=== PATIENT | male | born 1980 | race Caucasian/White ===

== ENCOUNTER 2018-06-27 08:15 | Emergency (ER) | payer OTHER, SELFPAY ==
[2018-06-27] VITALS (7 sets, daily range): BP systolic 102–122; BP diastolic 65–78; PULSE 58–73; RESP 12–18; TEMP 36.6; O2SAT 98–100
--- NOTE | 2018-06-27 08:31 | DI.RAD.S_ITS ---
PROCEDURE: XR CHEST 1V INDICATIONS: dizzy, weak, BP in 80s TECHNIQUE: One view of the chest was acquired. COMPARISON: None. FINDINGS: Surgical changes and devices: Monitoring leads are seen overlying the chest. Lungs and pleura: No pleural effusions or pneumothorax. Lungs are clear. Mediastinum: Mediastinal contours appear normal. Heart size is normal. Bones and chest wall: No suspicious bony lesions. Overlying soft tissues appear unremarkable. IMPRESSION: Portable chest within normal limits. Dictated by: Jose Manuel Andrade M.D. on 06/27/2018 at 8:13 Approved by: Jose Manuel Andrade M.D. on 06/27/2018 at 8:13
--- NOTE | 2018-06-27 08:48 | ED_ITS ---
HPI - Dizziness General Chief Complaint: Dizziness Stated Complaint: LOW BP, DIZZY Time Seen by Provider: 06/27/18 08:16 Source: patient and family Mode of arrival: ambulatory Limitations: no limitations History of Present Illness HPI Narrative: 38-year-old with history of AFib and recent ablation presents to the emergency department with episodes of near syncope, lightheadedness and low blood pressure today. He had his ablation at the end of May and had a complication with a Foreman catheter resulting in gross hematuria requiring a subsequent hospitalization. He has had follow-up with Urology and denies any ongoing blood in his urine. He has not felt well for about the past week and today felt his worst. He was evaluated by PA at work and noted to have a blood pressure in the 80s while sitting and 60s while standing. He denies any change in his medications, stating that his dose of metoprolol and flecainide is unchanged. Related Data Home Medications Medication Instructions Recorded Confirmed acetaminophen [Tylenol] 325 mg PO Q6H PRN 06/27/18 06/27/18 apixaban [Eliquis] 5 mg PO BID 06/27/18 06/27/18 flecainide 50 mg PO BID 06/27/18 06/27/18 metoprolol tartrate 25 mg PO BID 06/27/18 06/27/18 pantoprazole 40 mg PO DAILY 06/27/18 06/27/18 Allergies Allergy/AdvReac Type Severity Reaction Status Date / Time No Known Drug Allergies Allergy Verified 06/27/18 09:10 Review of Systems Review of Systems All systems reviewed & are unremarkable except as noted in HPI and below Constitutional Denies chills, Denies fever(s), Denies lethargy and Denies weakness Eyes Denies change in vision, Denies eye discharge, Denies irritation and Denies loss of vision ENT Ears, Nose, Mouth, and Throat: Denies change in voice, Denies neck pain and Denies sore throat Cardiovascular Denies chest pain, Denies irregular heart rhythm, Reports lightheadedness, Reports palpitations, Denies dyspnea, Denies dyspnea on exertion and Denies orthopnea Respiratory Denies cough, Denies dyspnea, Denies dyspnea on exertion and Denies wheezing Gastrointestinal Gastrointestinal: Denies abdominal pain, Denies change in bowel habits, Denies diarrhea, Denies nausea and Denies vomiting Genitourinary Denies hematuria, Denies flank pain, Denies urinary incontinence and Denies urinary urgency Musculoskeletal Denies neck pain Integumentary/Breasts Denies pruritus, Denies erythema, Denies rash and Denies wounds Neurologic Denies confusion, Denies loss of vision and Denies weakness Psychiatric Denies anxiety, Denies confusion, Denies depression, Denies homicidal ideation and Denies suicidal ideation Endocrine Reports palpitations Hematologic/Lymphatic Denies easy bruising Allergic/Immunologic Denies wheezing [facility] Medical History Atrial fibrillation (Acute) Atrial flutter (Acute) Surgical History History of cardiac radiofrequency ablation (Acute) Exam Initial Vital Signs Initial Vital Signs: Vital Signs Temperature 97.8 F 06/27/18 08:20 Pulse Rate 59 L 06/27/18 08:20 Respiratory Rate 13 06/27/18 08:20 Blood Pressure 107/78 06/27/18 08:20 Pulse Oximetry 100 06/27/18 08:20 Const General: cooperative and well developed Nutritional Appearance: well nourished Orientation: alert, awake, oriented x3 and not confused [facility] Head: normocephalic and atraumatic Ears: external ears normal and TM's normal bilaterally Nose: external nose normal and No nasal discharge Face and sinus: sinuses nontender, face symmetric, no sinus tenderness and No dry mucous membranes Mouth: oral mucosae normal and moist mucous membranes Teeth and gingiva: dentition normal Throat: tonsils normal and uvula midline Eyes General: appearance normal, both eyes and all related structures Eyelids: eyelids normal Conjunctivae: conjunctivae normal Sclera: sclerae normal Pupils: PERRL EOM: EOM intact bilaterally Neck Neck: normal visual inspection, trachea midline, No lymphadenopathy, No midline deformity and No JVD Lymphatic: No lymphedema Chest Chest: normal inspection of the chest Resp Effort & Inspection: normal respiratory effort, able to speak in complete sentences, no respiratory distress and no use of accessory muscles Auscultation: clear to auscultation bilaterally, no rales, no rhonchi and no wheezes Cardio Rate: regular rate Rhythm: abnormal rhythm Heart Sounds: no click, no gallops, no murmurs and no rubs Pulses: normal peripheral pulses GI Inspection: non-distended Palpation: soft, no hepatosplenomegaly, No guarding, No pulsatile mass and No tender Auscultation: normal bowel sounds Back/Spine/Pelvis Back: No CVA tenderness Cervical Spine: cervical ROM normal and No pain with cervical ROM Thoracic/Lumbar Spine: thoracic and lumbar spine normal to inspection Skin General: no rashes or lesions noted, No jaundice and No petechiae Neuro General: alert, oriented x3, gait normal and no focal motor deficits Speech: speech normal Extrem General: full ROM, no clubbing, cyanosis or edema, no pedal edema and no calf tenderness Psych Appearance: well kempt Mental Status: mental status grossly normal Attitude: cooperative Thought Content: normal and suicidality Judgment: judgment good Course Orders Ordered: ED Orders 06/27/18 10:18 CT angio chest PE protocol Stat 06/27/18 12:08 Urinalysis Sreen (Dip Only) Stat 06/27/18 12:34 Urine Culture Stat Urine Microscopic Stat Discontinued Medications Sodium Chloride (Normal Saline 0.9%) 1,000 mls @ 150 mls/hr IV CONT RANDALL Last Infusion: 06/27/18 12:51 Dose: 0 mls/hr Infusion: 06/27/18 09:54 Dose: 1,000 mls/hr Admin: 06/27/18 09:19 Dose: 150 mls/hr Consultations Consultation #1: I have had multiple lengthy conversations with the patient's advertising sales consultant regarding how to care for this patient. Dr. Arango recommends stat echocardiogram as well as a CT a of the chest to rule out any vascular abnormalities in the aftermath of the patient's ablation. Consultation #2: Dr. Arango has reviewed both the CT and echocardiogram and we sure the opinion that the patient can be safely discharged to follow up on Wednesday as previously planned. He has been given extensive bedside discharge instructions knees and he and parents have had all questions answered to their apparent satisfaction Vital Signs - 8 hr 06/27/18 11:18 06/27/18 11:51 Pulse Rate 65 72 Respiratory Rate 14 12 Blood Pressure [Left Arm] 122/78 H 112/77 Pulse Oximetry 99 MDM - Dizziness Differential Diagnosis Likely adverse reaction to drug, orthostatic hypotension, vertebral basilar insufficiency and other (anemia, arrhythmia, electrolyte abnormality, medication reaction, vs. other) Medical Records Attestation: I reviewed the patient's medical records. Lab Data Attestation: I reviewed the patient's lab results. Result diagrams: 06/27/18 08:40 06/27/18 08:40 Lab Results 06/27/18 06/27/18 06/27/18 Range/Units 08:40 08:40 08:40 WBC 4.6 (4.5-11.0) X10^3/uL RBC 3.76 L (4.5-5.9) X10^6/uL Hgb 11.3 L (13.5-17.5) g/dL Hct 32.5 L (41-53) % MCV 86.5 (80-100) fL MCH 30.1 (26-34) PG MCHC 34.8 (30-36) % RDW 14.0 (11.6-14.8) % Plt Count 377 (150-400) X10^3/uL Neut % (Auto) 55.4 (50-75) % Lymph % (Auto) 33.0 (25-40) % [place] % (Auto) 8.7 (3-14) % Eos % (Auto) 1.7 L (2-4) % Baso % (Auto) 1.2 (0-2) % Neut # (Auto) 2500 L (3578-5184) /uL Sodium 139 (137-145) mmol/L Potassium 4.7 (3.4-5.1) mmol/L Chloride 101 (98-107) mmol/L Carbon Dioxide 27 (22-32) mmol/L BUN 17 (9-20) mg/dL Creatinine 1.20 (0.66-1.25) mg/dL Estimated GFR > 60.0 (>60) mL/min BUN/Creatinine Ratio 14.2 (6-22) Glucose 80 (70-100) mg/dL Calcium 9.6 (8.4-10.2) mg/dL Troponin I < 0.012 (0.01-0.034) ng/mL Urine Color Urine Appearance Urine pH (4.5-8.0) Ur Specific [place] (1.000-1.035) Urine Protein (Negative) Urine Glucose (UA) (Normal) g/dL Urine Ketones (NEGATIVE) Urine Occult Blood (Negative) Urine Nitrate (Negative) Urine Bilirubin (NEGATIVE) Urine Urobilinogen (0.2) E.U./dL Ur Leukocyte Esterase (NEGATIVE) Urine RBC (0-5/HPF) Urine WBC (0-5/HPF) Urine Bacteria (None) Ur Culture Indicated? Micro UA Comment Blood Type A Positive Antibody Screen Negative 06/27/18 06/27/18 Range/Units 12:08 12:34 WBC (4.5-11.0) X10^3/uL RBC (4.5-5.9) X10^6/uL Hgb (13.5-17.5) g/dL Hct (41-53) % MCV (80-100) fL MCH (26-34) PG MCHC (30-36) % RDW (11.6-14.8) % Plt Count (150-400) X10^3/uL Neut % (Auto) (50-75) % Lymph % (Auto) (25-40) % [place] % (Auto) (3-14) % Eos % (Auto) (2-4) % Baso % (Auto) (0-2) % Neut # (Auto) (6022-0669) /uL Sodium (137-145) mmol/L Potassium (3.4-5.1) mmol/L Chloride (98-107) mmol/L Carbon Dioxide (22-32) mmol/L BUN (9-20) mg/dL Creatinine (0.66-1.25) mg/dL Estimated GFR (>60) mL/min BUN/Creatinine Ratio (6-22) Glucose (70-100) mg/dL Calcium (8.4-10.2) mg/dL Troponin I (0.01-0.034) ng/mL Urine Color Yellow Urine Appearance Clear Urine pH 7.0 (4.5-8.0) Ur Specific [place] 1.010 (1.000-1.035) Urine Protein Negative (Negative) Urine Glucose (UA) Negative (Normal) g/dL Urine Ketones Negative (NEGATIVE) Urine Occult Blood Trace-intact (Negative) Urine Nitrate Negative (Negative) Urine Bilirubin Negative (NEGATIVE) Urine Urobilinogen 0.2 (0.2) E.U./dL Ur Leukocyte Esterase Negative (NEGATIVE) Urine RBC None seen (0-5/HPF) Urine WBC 5-10/hpf H (0-5/HPF) Urine Bacteria None seen (None) Ur Culture Indicated? Specimen cultured Micro UA Comment Not Reportable Blood Type Antibody Screen Imaging Data CT scan - chest: Radiologist's impression: PROCEDURE: CT ANGIO CHEST PE PROTOCOL INDICATIONS: near syncope, BP in 60-80s, recent ablation TECHNIQUE: After the administration of intravenous contrast, 2 mm thick sections acquired from the pulmonary apices to the posterior costophrenic angles. 3-dimensional maximum intensity projection (MIP) coronal and sagittal reformats were then acquired through the thorax. For radiation dose reduction, the following was used: automated exposure control, adjustment of mA and/or kV according to patient size. COMPARISON: None. FINDINGS: Image quality: Excellent. Pulmonary arteries: Pulmonary arteries are normal in size, and demonstrate no intraluminal filling defects to suggest central pulmonary embolism. Lungs and pleura: There is mild dependent atelectasis. No focal consolidation to No pleural effusions or pneumothorax. Central and peripheral airways are patent. Mediastinum: No mediastinal fluid collections. Heart size is normal, without pericardial effusion. No mediastinal or hilar adenopathy. Thoracic aorta is normal in caliber and enhancement. Esophagus is normal in caliber, without hiatal hernia. Bones and chest wall: No suspicious bony lesions. Ribs and thoracic spine appear intact throughout. The visualized thyroid demonstrates no discrete nodules. No axillary or supraclavicular adenopathy. Abdomen: Visualized upper abdominal solid organs appear normal in the early arterial phase of enhancement. IMPRESSION: 1. No evidence of pulmonary embolism. 2. No mediastinal fluid collections. Dictated by: Isak Gage M.D. on 06/27/2018 at 10:17 Approved by: Isak Gage M.D. on 06/27/2018 at 10:21 ECG Data Attestation: I personally reviewed and interpreted this ECG as follows: Prior ECG tracings: not available for review Interpretation: Atrial flutter in the 60s. No signs of ischemia such as ST segmental elevation or depression, nor T-wave inversions Critical Care Time Critical Care Time: Yes Total Critical Care Time: 30 Attestation: The high probability of a clinically significant, sudden or life threatening deterioration of the [cardiovascular] system(s) required my full and direct attention, intervention and personal management. The aggregate critical care time was [30] minutes. This time is in addition to time spent performing reported procedures but includes the following: [x] Data Review and interpretation [x] Patient assessment and monitoring of vital signs [x] Documentation [x] Medication orders and management Discharge Plan Departure Patient Disposition: Home, Self-Care Clinical Impression: Near syncope Discharge Date/Time: 06/27/18 12:45 Interventions: ED Discharge Assessment Last Done: 06/27/18 12:44 Instructions: DI for Hypotension Activity Restrictions/Additional Instructions: *You have been diagnosed with [hypotension resolved, near syncope ] *What to do: *Continue to take medications as directed *Follow up with your advertising sales consultant as planne *Return to ER if you should have any new, worsening or concerning symptoms Prescriptions: No Action pantoprazole 40 mg tablet,delayed release (DR/EC) 40 mg PO DAILY RF: 0 flecainide 50 mg tablet 50 mg PO BID RF: 0 metoprolol tartrate 25 mg tablet 25 mg PO BID RF: 0 acetaminophen [Tylenol] 325 mg Capsule 325 mg PO Q6H PRN (Reason: Pain (Scale Score 4-6)) RF: 0 apixaban [Eliquis] 5 mg tablet 5 mg PO BID RF: 0 Referrals: Brijesh Arango MD [Physician] -
[2018-06-27 09:06] LABS: Add Manual Diff / Slide Review NO; Basophils Percent Auto 1.2 % (0-2); Eosinophils Percent Auto 1.7 % (2-4); Hematocrit 32.5 % (41-53); Hemoglobin 11.3 g/dL (13.5-17.5); Mean Corpuscular HGB Conc 34.8 % (30-36); Mean Corpuscular Hemoglobin 30.1 PG (26-34); Mean Corpuscular Volume 86.5 fL (80-100); Monocytes Percent Auto 8.7 % (3-14); Neutrophils Absolute Auto 2500 /uL (3000-5900); Neutrophils Percent Auto 55.4 % (50-75); Platelet Count 377 X10^3/uL (150-400); Red Blood Cell Count 3.76 X10^6/uL (4.5-5.9); White Blood Cell Count 4.6 X10^3/uL (4.5-11.0)
[2018-06-27 09:19] LABS: BUN Creatinine Ratio 14.2 (6-22); Blood Urea Nitrogen 17 mg/dL (9-20); Calcium 9.6 mg/dL (8.4-10.2); Carbon Dioxide 27 mmol/L (22-32); Chloride 101 mmol/L (98-107); Estimated Glomerular Filt Rate > 60.0 mL/min (>60); Glucose 80 mg/dL (70-100); Potassium 4.7 mmol/L (3.4-5.1); Sodium 139 mmol/L (137-145)
[2018-06-27] MEDS: SODIUM CHLORIDE 0.9% 1,000 ML 150 ML IV (09:19)
[2018-06-27 09:20] LABS: HEMOLYSIS 70 (0-50)
[2018-06-27 09:30] LABS: Troponin I < 0.012 ng/mL (0.01-0.034)
--- NOTE | 2018-06-27 10:09 | DI.ECHO.S_ITS ---
[place] [facility]---------+ [facility] +---------+ : : [address] [place] : : : : [phone] : : : : Phone: [phone]+ Echocardiogram Report + + :Name: AGUILA HALL Study Date: 06/27/2018 Height: 75 in : :[facility] Weight: 220 lb : : Gender: Male BSA: 2.3 m2 : :: 1980 Age: 38 yrs BP: 112/77 mmHg: :Reason For Study: Atrial fibrillation : :Ordering Physician: Brijesh Ceballos : :[place] Performed By: Carlee Irvin : :Referring: THOMAS HAMMER : + + Interpretation Summary 1) Normal left ventricular thickness, size, wall motion, and systolic function (EF 60-65%). 2) Mildly enlarged right ventricle with mildly reduced function. 3) No significant valvular abnormalities. 4) The right ventricular systolic pressure is estimated at 22 mmHg assuming a right atrial pressure of 3 mm Hg. 5) Compared to the Echo done 06/09/2018, RV is mildly enlarged with mildly reduced function on this study but RV was not well imaged on the prior echo. Compared to the Echo done 12/21/2017, RV looks about the same grossly. Procedure: A two-dimensional transthoracic echocardiogram with color flow and Doppler was performed. The study quality was technically adequate. Comparison is made with the echocardiogram of 06-09-18. The patient was in atrial fibrillation with heart rates between 71-83 bpm during the exam. Left Ventricle: The left ventricle is normal in size, wall thickness, and systolic function without any focal wall motion abnormalities. The ejection fraction is estimated to be 60-65%. Right Ventricle: The right ventricle is mildly dilated. Right ventricular systolic function is mildly reduced. Atria: The left atrium grossly appears normal in size. Right atrial size is normal. The interatrial septum is intact with no evidence for an atrial septal defect. Mitral Valve: The mitral valve is normal in structure and function. There is no mitral regurgitation noted. Aortic Valve: The aortic valve is trileaflet. The aortic valve opens well. No aortic regurgitation is present. Tricuspid Valve: The tricuspid valve leaflets are thin and pliable. There is trace tricuspid regurgitation. The right ventricular systolic pressure is estimated at 22 mmHg assuming a right atrial pressure of 3 mm Hg. Pulmonic Valve: The pulmonic valve is normal in structure and function. There is trace pulmonic regurgitation. Great Vessels: The aortic root is mildly dilated. The ascending aorta is normal in size. The aortic arch is normal in size. The IVC is of normal diameter and collapses greater than 50% with a sniff. This suggests a low right atrial pressure of 3 mm Hg. Pericardium/ Pleura There is no pericardial effusion. There is no pleural effusion. MMode/2D Measurements & Calculations LVIDd: 5.3 cm Ao root diam: 4.1 cm LVIDs: 3.5 cm Aortic Jxn: 3.1 cm FS: 33.4 % asc Aorta Diam: 3.3 cm IVSd: 0.91 cm Ao Arch Diam (Prox Trans): 2.7 cm LVPWd: 0.69 cm LV saldivar. diameter/BSA (cm/m^2): 2.3 LV sys. diameter/BSA (cm/m^2): 1.5 LA dimension: 3.7 cm RA long axis: 5.0 cm LA A4 area: 23.6 cm2 RA area: 18.6 cm2 LA length (vol): 5.2 cm RA vol: 59.2 ml RA : 25.9 ml/m2 IVC diam: 1.4 cm RVDd major: 5.3 cm RVD1 (basal): 4.1 cm RVD2 (mid): 3.8 cm Doppler Measurements & Calculations Ao V2 max: 87.6 cm/sec TR max salena: 216.0 cm/sec Ao V2 mean: 60.1 cm/sec TR max P.7 mmHg Ao max P.1 mmHg PA V2 max: 59.6 cm/sec Ao mean P.6 mmHg PA V2 mean: 42.9 cm/sec Ao V2 VTI: 18.0 cm PA mean P.82 mmHg PA Accel Time: 0.13 sec Reading Physician:01:06 PM
--- NOTE | 2018-06-27 10:18 | DI.CT.S_ITS ---
PROCEDURE: CT ANGIO CHEST PE PROTOCOL INDICATIONS: near syncope, BP in 60-80s, recent ablation TECHNIQUE: After the administration of intravenous contrast, 2 mm thick sections acquired from the pulmonary apices to the posterior costophrenic angles. 3-dimensional maximum intensity projection (MIP) coronal and sagittal reformats were then acquired through the thorax. For radiation dose reduction, the following was used: automated exposure control, adjustment of mA and/or kV according to patient size. COMPARISON: None. FINDINGS: Image quality: Excellent. Pulmonary arteries: Pulmonary arteries are normal in size, and demonstrate no intraluminal filling defects to suggest central pulmonary embolism. Lungs and pleura: There is mild dependent atelectasis. No focal consolidation to No pleural effusions or pneumothorax. Central and peripheral airways are patent. Mediastinum: No mediastinal fluid collections. Heart size is normal, without pericardial effusion. No mediastinal or hilar adenopathy. Thoracic aorta is normal in caliber and enhancement. Esophagus is normal in caliber, without hiatal hernia. Bones and chest wall: No suspicious bony lesions. Ribs and thoracic spine appear intact throughout. The visualized thyroid demonstrates no discrete nodules. No axillary or supraclavicular adenopathy. Abdomen: Visualized upper abdominal solid organs appear normal in the early arterial phase of enhancement. IMPRESSION: 1. No evidence of pulmonary embolism. 2. No mediastinal fluid collections. Dictated by: Isak Gage M.D. on 06/27/2018 at 10:17 Approved by: Isak Gage M.D. on 06/27/2018 at 10:21
[2018-06-27 12:10] LABS: Appearance Urine UA CLEAR; Bilirubin Urine UA NEGATIVE (NEGATIVE); Color Urine UA YELLOW; Glucose Urine UA NEGATIVE (Normal); Ketones Urine UA NEGATIVE (NEGATIVE); Leukocyte Esterase Urine UA NEGATIVE (NEGATIVE); Nitrite Urine UA Negative (Negative); Occult Blood Urine UA TRACE-INTACT (Negative); Protein Urine UA NEGATIVE (Negative); Urobilinogen Urine UA 0.2 E.U./dL (0.2)
[2018-06-27 13:57] LABS: Bacteria Urine None Seen; RBC Urine None Seen (0-5/HPF)
[2018-06-27 14:12] LABS: Culture Indicated Urine Specimen Cultured; WBC Urine 5-10/HPF (0-5/HPF)
== END 2018-06-27 12:45 | disposition home or self-care (01) ==
PROVIDERS: Emergency Provider Emergency Medicine
DX: R55 Syncope and collapse (principal)
CPT/HCPCS: 36591; 71045; 71275; 80048; 81003; 81015; 84484; 85025; 86850; 86900; 86901; 87086; 93005; 93010; 93306; 96360; 96361; 99283; 99285; Q9967

== ENCOUNTER 2019-01-17 11:45 | Emergency (ER) | payer OTHER, SELFPAY ==
[2019-01-17 11:50] VITALS: BP 156/87; PULSE 74; RESP 16; TEMP 36.1; O2SAT 99; BMI 28.1
--- NOTE | 2019-01-17 11:57 | DI.RAD.S_ITS ---
PROCEDURE: XR CHEST 1V INDICATIONS: cp TECHNIQUE: One view of the chest was acquired. COMPARISON: [facility], CR, XR CHEST 1V, 06/27/2018, 8:41. FINDINGS: Surgical changes and devices: None. Lungs and pleura: Lungs are clear. No pleural effusions or pneumothorax. Mediastinum: Mediastinal contours appear normal. Heart size is normal. Bones and chest wall: No suspicious bony lesions. Overlying soft tissues appear unremarkable. IMPRESSION: Negative chest. No acute cardiopulmonary process is evident. Dictated by: Manuel Daniel M.D. on 01/17/2019 at 11:26 Approved by: Manuel Daniel M.D. on 01/17/2019 at 11:27
--- NOTE | 2019-01-17 12:04 | ED.ARRPALP ---
HPI - Arrhythmia/Palpitations <ANGELA Molina - Last Filed: 01/17/19 22:06> General Chief Complaint: Arrhythmia/Palpitations Stated Complaint: 'Feel weird' hx of afib Time Seen by Provider: 01/17/19 12:04 Source: patient Mode of arrival: ambulatory Limitations: no limitations History of Present Illness HPI narrative: 38-year-old male with history of AFib who is a nonsmoker here for complaint of having complaint of chest tenseness over the past couple of weeks to the last couple of months. He recently had an ablation for his AF fib in October. He is currently followed by cardiology Dr. Cantrell at . he denies any chest pain. No shortness of breath. He does state that he has been feeling anxious over this same time frame. He does report that he has been seen by his primary care provider and was concerned about put him on a anti anxiety meds as they did not want complications with his heart issues. He denies any nausea vomiting. He denies any stressors or relievers of his symptoms. He denies any extra stressed. He is ambulatory into the emergency room. He denies any other concerns or complaints at this timeframe. Related Data Home Medications Medication Instructions Recorded Confirmed acetaminophen [Tylenol] 325 mg PO Q6H PRN 06/27/18 01/17/19 apixaban [Eliquis] 5 mg PO BID 06/27/18 01/17/19 metoprolol tartrate 25 mg PO BID 06/27/18 01/17/19 Nyquil 1 dose PO BEDTIME PRN 01/17/19 01/17/19 amiodarone 1 dose PO BID 01/17/19 01/17/19 multivitamin 1 tab PO DAILY 01/17/19 01/17/19 Allergies Allergy/AdvReac Type Severity Reaction Status Date / Time No Known Drug Allergies Allergy Verified 01/17/19 11:50 Review of Systems <ANGELA Molina - Last Filed: 01/17/19 22:06> Constitutional Denies chills, Denies fatigue, Denies fever(s), Denies lethargy and Denies weakness Eyes Denies change in vision, Denies eye discharge, Denies irritation and Denies loss of vision ENT Ears, Nose, Mouth, and Throat: Denies change in voice, Denies neck pain and Denies sore throat Cardiovascular Denies dyspnea and Denies dyspnea on exertion Comments: Chest tenseness Respiratory Denies cough, Denies dyspnea, Denies dyspnea on exertion and Denies wheezing Gastrointestinal Gastrointestinal: Denies abdominal pain, Denies change in bowel habits, Denies diarrhea, Denies nausea and Denies vomiting Musculoskeletal Denies neck pain Integumentary/Breasts Denies pruritus, Denies erythema, Denies rash and Denies wounds Neurologic Denies confusion, Denies loss of vision and Denies weakness Psychiatric Denies anxiety, Denies confusion, Denies depression, Denies homicidal ideation and Denies suicidal ideation Endocrine Denies fatigue and Denies flushing Hematologic/Lymphatic Denies easy bruising Allergic/Immunologic Denies wheezing PFSH <ANGELA Molina - Last Filed: 01/17/19 22:06> Medical History Atrial fibrillation (Acute) Atrial flutter (Acute) Surgical History History of cardiac radiofrequency ablation (Acute) Social History Smoking Status: Never smoker Social History Smoking Status: Never smoker Exam <ANGELA Molina - Last Filed: 01/17/19 22:06> Initial Vital Signs Initial Vital Signs: Vital Signs Temperature 97.0 F L 01/17/19 11:50 Pulse Rate 74 01/17/19 11:50 Respiratory Rate 16 01/17/19 11:50 Blood Pressure 156/87 H 01/17/19 11:50 Pulse Oximetry 99 01/17/19 11:50 Const General: cooperative and well developed Nutritional Appearance: well nourished Orientation: alert, awake, oriented x3 and not confused HENMT Mouth: oral mucosae normal and moist mucous membranes Eyes Conjunctivae: conjunctivae normal Sclera: sclerae normal Pupils: PERRL EOM: EOM intact bilaterally Resp Effort & Inspection: normal respiratory effort, able to speak in complete sentences, no respiratory distress and no use of accessory muscles Auscultation: clear to auscultation bilaterally, no rales, no rhonchi and no wheezes Cardio Rate: regular rate Rhythm: regular rhythm Heart Sounds: no click, no gallops, no murmurs and no rubs Pulses: normal peripheral pulses Skin General: no rashes or lesions noted, No jaundice and No petechiae Neuro General: alert, oriented x3, gait normal and no focal motor deficits Speech: speech normal <Neo Quintana DO - Last Filed: 01/18/19 07:14> Initial Vital Signs Initial Vital Signs: Vital Signs Temperature 97.0 F L 01/17/19 11:50 Pulse Rate 74 01/17/19 11:50 Respiratory Rate 16 01/17/19 11:50 Blood Pressure 156/87 H 01/17/19 11:50 Pulse Oximetry 99 01/17/19 11:50 Course <ANGELA Molina - Last Filed: 01/17/19 22:06> Orders Ordered: ED Orders 01/17/19 11:57 XR chest 1V Stat 01/17/19 12:20 Basic Metabolic Panel Stat Complete Blood Count AUTO DIFF Stat Magnesium Stat Partial Thromboplastin Time Stat Prothrombin Time INR Stat Thyroid Stimulating Hormone Stat Troponin & CK Cardiac Panel Stat Vital Signs - 8 hr 01/17/19 14:30 Pulse Rate 62 Respiratory Rate 14 Blood Pressure [Right Arm] 129/94 H Pulse Oximetry 100 <DO Steff Ybarra Last Filed: 01/18/19 07:14> Orders Ordered: ED Orders 01/17/19 11:57 XR chest 1V Stat 01/17/19 12:20 Basic Metabolic Panel Stat Complete Blood Count AUTO DIFF Stat Magnesium Stat Partial Thromboplastin Time Stat Prothrombin Time INR Stat Thyroid Stimulating Hormone Stat Troponin & CK Cardiac Panel Stat Vital Signs - 8 hr 01/17/19 14:30 Pulse Rate 62 Respiratory Rate 14 Blood Pressure [Right Arm] 129/94 H Pulse Oximetry 100 MDM - Arrhythmia/Palpitations <ANGELA Molina - Last Filed: 01/17/19 22:06> Lab Data Result diagrams: 01/17/19 12:20 01/17/19 12:20 Lab Results 01/17/19 01/17/19 01/17/19 Range/Units 12:20 12:20 12:20 WBC 5.8 (4.5-11.0) X10^3/uL RBC 4.93 (4.5-5.9) X10^6/uL Hgb 14.8 (13.5-17.5) g/dL Hct 43.0 (41-53) % MCV 87.1 (80-100) fL MCH 29.9 (26-34) PG MCHC 34.4 (30-36) % RDW 13.6 (11.6-14.8) % Plt Count 260 (150-400) X10^3/uL Neut % (Auto) 65.5 (50-75) % Lymph % (Auto) 25.8 (25-40) % Brewster % (Auto) 7.0 (3-14) % Eos % (Auto) 0.8 L (2-4) % Baso % (Auto) 0.9 (0-2) % Neut # (Auto) 3800 (7966-1812) /uL Lymph # (Auto) 1500 (2307-6130) /uL Brewster # (Auto) 400 (0-900) /uL Eos # (Auto) 0 (0-450) /uL Baso # (Auto) 100 (0-100) /uL PT 13.8 H (10.1-12.7) SECONDS INR 1.2 (0.9-1.3) APTT 30 (26.4-36.2) SECONDS Sodium 137 (137-145) mmol/L Potassium 4.1 (3.4-5.1) mmol/L Chloride 99 (98-107) mmol/L Carbon Dioxide 28 (22-32) mmol/L BUN 22 H (9-20) mg/dL Creatinine 1.20 (0.66-1.25) mg/dL Estimated GFR > 60.0 (>60) mL/min BUN/Creatinine Ratio 18.3 (6-22) Glucose 93 (70-100) mg/dL Calcium 9.6 (8.4-10.2) mg/dL Magnesium 2.1 (1.6-2.3) mg/dL Total Creatine Kinase 718 H (55-170) U/L CK-MB (CK-2) 5.25 H (<2.37) ng/mL CK-MB (CK-2) Rel Index 0.7 L (1.5-5.0) % Troponin I < 0.012 (0.01-0.034) ng/mL TSH (0.47-4.68) uIU/mL 01/17/19 Range/Units 12:20 WBC (4.5-11.0) X10^3/uL RBC (4.5-5.9) X10^6/uL Hgb (13.5-17.5) g/dL Hct (41-53) % MCV (80-100) fL MCH (26-34) PG MCHC (30-36) % RDW (11.6-14.8) % Plt Count (150-400) X10^3/uL Neut % (Auto) (50-75) % Lymph % (Auto) (25-40) % Brewster % (Auto) (3-14) % Eos % (Auto) (2-4) % Baso % (Auto) (0-2) % Neut # (Auto) (9651-0186) /uL Lymph # (Auto) (8554-9511) /uL Brewster # (Auto) (0-900) /uL Eos # (Auto) (0-450) /uL Baso # (Auto) (0-100) /uL PT (10.1-12.7) SECONDS INR (0.9-1.3) APTT (26.4-36.2) SECONDS Sodium (137-145) mmol/L Potassium (3.4-5.1) mmol/L Chloride (98-107) mmol/L Carbon Dioxide (22-32) mmol/L BUN (9-20) mg/dL Creatinine (0.66-1.25) mg/dL Estimated GFR (>60) mL/min BUN/Creatinine Ratio (6-22) Glucose (70-100) mg/dL Calcium (8.4-10.2) mg/dL Magnesium (1.6-2.3) mg/dL Total Creatine Kinase (55-170) U/L CK-MB (CK-2) (<2.37) ng/mL CK-MB (CK-2) Rel Index (1.5-5.0) % Troponin I (0.01-0.034) ng/mL TSH 2.72 (0.47-4.68) uIU/mL Imaging Data Chest x-ray: Radiologist's impression: [address] [address] XRay Report Signed Patient: IsabelMike [facility]#: [id number] : 1980Acct:[id number] Age/Sex: 38 / MDate of Service: 01/17/19 Loc: ED Accession Number: [id number] Procedure: XR chest 1V Ordering Provider: Neo Quintana D.O. PROCEDURE: XR CHEST 1V INDICATIONS: cp TECHNIQUE: One view of the chest was acquired. COMPARISON: [facility], , XR CHEST 1V, 06/27/2018, 8:41. FINDINGS: Surgical changes and devices: None. Lungs and pleura: Lungs are clear. No pleural effusions or pneumothorax. Mediastinum: Mediastinal contours appear normal. Heart size is normal. Bones and chest wall: No suspicious bony lesions. Overlying soft tissues appear unremarkable. IMPRESSION: Negative chest. No acute cardiopulmonary process is evident. Dictated by: Manuel Daniel M.D. on 01/17/2019 at 11:26 Approved by: Manuel Daniel M.D. on 01/17/2019 at 11:27 ECG Data Interpretation: EKG shows normal sinus rhythm with no ST elevation or depression. No ectopy. Ventricular rate is 70. Pr interval of 172. QRS duration of 100. QTC of 444. MDM Narrative Medical decision making narrative: EKG shows sinus rhythm no ST elevation or depression. No ectopy. Chest x-ray was obtained was negative. Cbc Was unremarkable. CMP was obtained was also unremarkable. CK was elevated at 718 CK-MB was also elevated at 5.25 however CK-MB relative index was low at 0.7. Troponin was negative. Believe that his chest tense feeling may be related to anxiety. Discussed case with Dr. Cantrell cardiology at who states that she knows patient it as being an anxious individual. She has no contraindications for him to going normal anti anxiety medications. She will follow up with him in her office next week as scheduled. She states that no further actions are needed at this time. He is encouraged to follow up with his primary care provider for discussion of antianxiety medications. For now he is encouraged to use relaxation techniques such as deep breathing exercises to help with any symptoms. For any worsening symptoms return to the emergency room. <Neo Quintana DO - Last Filed: 01/18/19 07:14> Lab Data Lab Results 03/05/19 03/05/19 03/05/19 Range/Units 12:20 12:20 12:20 WBC 5.8 (4.5-11.0) X10^3/uL RBC 4.93 (4.5-5.9) X10^6/uL Hgb 14.8 (13.5-17.5) g/dL Hct 43.0 (41-53) % MCV 87.1 (80-100) fL MCH 29.9 (26-34) PG MCHC 34.4 (30-36) % RDW 13.6 (11.6-14.8) % Plt Count 260 (150-400) X10^3/uL Neut % (Auto) 65.5 (50-75) % Lymph % (Auto) 25.8 (25-40) % Brewster % (Auto) 7.0 (3-14) % Eos % (Auto) 0.8 L (2-4) % Baso % (Auto) 0.9 (0-2) % Neut # (Auto) 3800 (9146-4521) /uL Lymph # (Auto) 1500 (4908-7234) /uL Brewster # (Auto) 400 (0-900) /uL Eos # (Auto) 0 (0-450) /uL Baso # (Auto) 100 (0-100) /uL PT 13.8 H (10.1-12.7) SECONDS INR 1.2 (0.9-1.3) APTT 30 (26.4-36.2) SECONDS Sodium 137 (137-145) mmol/L Potassium 4.1 (3.4-5.1) mmol/L Chloride 99 (98-107) mmol/L Carbon Dioxide 28 (22-32) mmol/L BUN 22 H (9-20) mg/dL Creatinine 1.20 (0.66-1.25) mg/dL Estimated GFR > 60.0 (>60) mL/min BUN/Creatinine Ratio 18.3 (6-22) Glucose 93 (70-100) mg/dL Calcium 9.6 (8.4-10.2) mg/dL Magnesium 2.1 (1.6-2.3) mg/dL Total Creatine Kinase 718 H (55-170) U/L CK-MB (CK-2) 5.25 H (<2.37) ng/mL CK-MB (CK-2) Rel Index 0.7 L (1.5-5.0) % Troponin I < 0.012 (0.01-0.034) ng/mL TSH (0.47-4.68) uIU/mL 01/17/19 Range/Units 12:20 WBC (4.5-11.0) X10^3/uL RBC (4.5-5.9) X10^6/uL Hgb (13.5-17.5) g/dL Hct (41-53) % MCV (80-100) fL MCH (26-34) PG MCHC (30-36) % RDW (11.6-14.8) % Plt Count (150-400) X10^3/uL Neut % (Auto) (50-75) % Lymph % (Auto) (25-40) % Brewster % (Auto) (3-14) % Eos % (Auto) (2-4) % Baso % (Auto) (0-2) % Neut # (Auto) (4644-1718) /uL Lymph # (Auto) (5414-8392) /uL Brewster # (Auto) (0-900) /uL Eos # (Auto) (0-450) /uL Baso # (Auto) (0-100) /uL PT (10.1-12.7) SECONDS INR (0.9-1.3) APTT (26.4-36.2) SECONDS Sodium (137-145) mmol/L Potassium (3.4-5.1) mmol/L Chloride (98-107) mmol/L Carbon Dioxide (22-32) mmol/L BUN (9-20) mg/dL Creatinine (0.66-1.25) mg/dL Estimated GFR (>60) mL/min BUN/Creatinine Ratio (6-22) Glucose (70-100) mg/dL Calcium (8.4-10.2) mg/dL Magnesium (1.6-2.3) mg/dL Total Creatine Kinase (55-170) U/L CK-MB (CK-2) (<2.37) ng/mL CK-MB (CK-2) Rel Index (1.5-5.0) % Troponin I (0.01-0.034) ng/mL TSH 2.72 (0.47-4.68) uIU/mL Discharge Plan Departure Patient Disposition: Home Clinical Impression: Chest tightness Discharge Date/Time: 01/17/19 15:06 Interventions: ED Discharge Assessment Last Done: 01/17/19 15:06 Instructions: DI for Anxiety -- Adult Activity Restrictions/Additional Instructions: laboratory results and imaging along with EKG today were unremarkable. Follow up with Cardiology next week as scheduled. I suspect that her symptoms may have a anxiety component to it recommend following up with her primary care provider for discussion of anti anxiety medications. In the short term recommend relaxation techniques such as deep breathing exercises to help with any symptoms. Take medications as prescribed. For any worsening symptoms return to the emergency room. Prescriptions: No Action multivitamin Tablet 1 tab PO DAILY RF: 0 amiodarone 200 mg tablet 1 dose PO BID RF: 0 Nyquil 1 dose PO BEDTIME PRN (Reason: cough and cold symptoms) RF: 0 metoprolol tartrate 25 mg tablet 25 mg PO BID RF: 0 acetaminophen [Tylenol] 325 mg Capsule 325 mg PO Q6H PRN (Reason: Pain (Scale Score 4-6)) RF: 0 Eliquis 5 mg tablet 5 mg PO BID RF: 0 Referrals: [facility] [Provider Group] <Neo Quintana DO - Last Filed: 01/18/19 07:14> Coscharla ED Attending Elvis Attestation: I was available for consultation during this patient's emergency department encounter
[2019-01-17 12:21] VITALS: BP 141/96; PULSE 67; RESP 15; O2SAT 95
[2019-01-17 12:29] LABS: Add Manual Diff / Slide Review NO; Basophils Absolute Auto 100 /uL (0-100); Basophils Percent Auto 0.9 % (0-2); Eosinophils Absolute Auto 0 /uL (0-450); Eosinophils Percent Auto 0.8 % (2-4); Hemoglobin 14.8 g/dL (13.5-17.5); Lymphocytes Absolute Auto 1500 /uL (1100-4500); Lymphocytes Percent Auto 25.8 % (25-40); Mean Corpuscular HGB Conc 34.4 % (30-36); Mean Corpuscular Hemoglobin 29.9 PG (26-34); Mean Corpuscular Volume 87.1 fL (80-100); Monocytes Absolute Auto 400 /uL (0-900); Neutrophils Absolute Auto 3800 /uL (1500-7000); Neutrophils Percent Auto 65.5 % (50-75); Platelet Count 260 X10^3/uL (150-400); Red Blood Cell Count 4.93 X10^6/uL (4.5-5.9); Red Cell Distribution Width 13.6 % (11.6-14.8); White Blood Cell Count 5.8 X10^3/uL (4.5-11.0)
[2019-01-17 12:38] LABS: INR 1.2 (0.9-1.3); Prothrombin Time 13.8 SECONDS (10.1-12.7)
[2019-01-17 12:41] LABS: PTT Partial Thromboplastin Tim 30 SECONDS (26.4-36.2)
[2019-01-17 12:44] LABS: BUN Creatinine Ratio 18.3 (6-22); Blood Urea Nitrogen 22 mg/dL (9-20); Calcium 9.6 mg/dL (8.4-10.2); Carbon Dioxide 28 mmol/L (22-32); Chloride 99 mmol/L (98-107); Creatine Kinase 718 U/L (55-170); Estimated Glomerular Filt Rate > 60.0 mL/min (>60); Glucose 93 mg/dL (70-100); HEMOLYSIS < 15 (0-50); Magnesium 2.1 mg/dL (1.6-2.3); Potassium 4.1 mmol/L (3.4-5.1); Sodium 137 mmol/L (137-145)
[2019-01-17 12:54] LABS: Troponin I < 0.012 ng/mL (0.01-0.034)
[2019-01-17 12:58] LABS: CKMB % Relative Index 0.7 % (1.5-5.0); Creatine Kinase MB 5.25 ng/mL (<2.37)
[2019-01-17 13:14] LABS: Thyroid Stimulating Hormone 2.72 uIU/mL (0.47-4.68)
[2019-01-17 14:30] VITALS: BP 129/94; PULSE 62; RESP 14; O2SAT 100
--- NOTE | 2019-01-17 14:51 | ED_ITS ---
HPI - Arrhythmia/Palpitations <ANGELA Molina - Last Filed: 01/17/19 22:06> General Chief Complaint: Arrhythmia/Palpitations Stated Complaint: 'Feel weird' hx of afib Time Seen by Provider: 01/17/19 12:04 Source: patient Mode of arrival: ambulatory Limitations: no limitations History of Present Illness HPI narrative: 38-year-old male with history of AFib who is a nonsmoker here for complaint of having complaint of chest tenseness over the past couple of weeks to the last couple of months. He recently had an ablation for his AF fib in October. He is currently followed by cardiology Dr. Cantrell at . he denies any chest pain. No shortness of breath. He does state that he has been feeling anxious over this same time frame. He does report that he has been seen by his primary care provider and was concerned about put him on a anti anxiety meds as they did not want complications with his heart issues. He denies any nausea vomiting. He denies any stressors or relievers of his symptoms. He denies any extra stressed. He is ambulatory into the emergency room. He denies any other concerns or complaints at this timeframe. Related Data Home Medications Medication Instructions Recorded Confirmed acetaminophen [Tylenol] 325 mg PO Q6H PRN 06/27/18 01/17/19 apixaban [Eliquis] 5 mg PO BID 06/27/18 01/17/19 metoprolol tartrate 25 mg PO BID 06/27/18 01/17/19 Nyquil 1 dose PO BEDTIME PRN 01/17/19 01/17/19 amiodarone 1 dose PO BID 01/17/19 01/17/19 multivitamin 1 tab PO DAILY 01/17/19 01/17/19 Allergies Allergy/AdvReac Type Severity Reaction Status Date / Time No Known Drug Allergies Allergy Verified 01/17/19 11:50 Review of Systems <ANGELA Molina - Last Filed: 01/17/19 22:06> Constitutional Denies chills, Denies fatigue, Denies fever(s), Denies lethargy and Denies weakness Eyes Denies change in vision, Denies eye discharge, Denies irritation and Denies loss of vision ENT Ears, Nose, Mouth, and Throat: Denies change in voice, Denies neck pain and Denies sore throat Cardiovascular Denies dyspnea and Denies dyspnea on exertion Comments: Chest tenseness Respiratory Denies cough, Denies dyspnea, Denies dyspnea on exertion and Denies wheezing Gastrointestinal Gastrointestinal: Denies abdominal pain, Denies change in bowel habits, Denies diarrhea, Denies nausea and Denies vomiting Musculoskeletal Denies neck pain Integumentary/Breasts Denies pruritus, Denies erythema, Denies rash and Denies wounds Neurologic Denies confusion, Denies loss of vision and Denies weakness Psychiatric Denies anxiety, Denies confusion, Denies depression, Denies homicidal ideation and Denies suicidal ideation Endocrine Denies fatigue and Denies flushing Hematologic/Lymphatic Denies easy bruising Allergic/Immunologic Denies wheezing PFSH <ANGELA Molina - Last Filed: 01/17/19 22:06> Medical History Atrial fibrillation (Acute) Atrial flutter (Acute) Surgical History History of cardiac radiofrequency ablation (Acute) Social History Smoking Status: Never smoker Social History Smoking Status: Never smoker Exam <ANGELA Molina - Last Filed: 01/17/19 22:06> Initial Vital Signs Initial Vital Signs: Vital Signs Temperature 97.0 F L 01/17/19 11:50 Pulse Rate 74 01/17/19 11:50 Respiratory Rate 16 01/17/19 11:50 Blood Pressure 156/87 H 01/17/19 11:50 Pulse Oximetry 99 01/17/19 11:50 Const General: cooperative and well developed Nutritional Appearance: well nourished Orientation: alert, awake, oriented x3 and not confused HENMT Mouth: oral mucosae normal and moist mucous membranes Eyes Conjunctivae: conjunctivae normal Sclera: sclerae normal Pupils: PERRL EOM: EOM intact bilaterally Resp Effort & Inspection: normal respiratory effort, able to speak in complete sentences, no respiratory distress and no use of accessory muscles Auscultation: clear to auscultation bilaterally, no rales, no rhonchi and no wheezes Cardio Rate: regular rate Rhythm: regular rhythm Heart Sounds: no click, no gallops, no murmurs and no rubs Pulses: normal peripheral pulses Skin General: no rashes or lesions noted, No jaundice and No petechiae Neuro General: alert, oriented x3, gait normal and no focal motor deficits Speech: speech normal <Neo Quintana DO - Last Filed: 01/18/19 07:14> Initial Vital Signs Initial Vital Signs: Vital Signs Temperature 97.0 F L 01/17/19 11:50 Pulse Rate 74 01/17/19 11:50 Respiratory Rate 16 01/17/19 11:50 Blood Pressure 156/87 H 01/17/19 11:50 Pulse Oximetry 99 01/17/19 11:50 Course <ANGELA Molina - Last Filed: 01/17/19 22:06> Orders Ordered: ED Orders 01/17/19 11:57 XR chest 1V Stat 01/17/19 12:20 Basic Metabolic Panel Stat Complete Blood Count AUTO DIFF Stat Magnesium Stat Partial Thromboplastin Time Stat Prothrombin Time INR Stat Thyroid Stimulating Hormone Stat Troponin & CK Cardiac Panel Stat Vital Signs - 8 hr 01/17/19 14:30 Pulse Rate 62 Respiratory Rate 14 Blood Pressure [Right Arm] 129/94 H Pulse Oximetry 100 <DO Steff Ybarra Last Filed: 01/18/19 07:14> Orders Ordered: ED Orders 01/17/19 11:57 XR chest 1V Stat 01/17/19 12:20 Basic Metabolic Panel Stat Complete Blood Count AUTO DIFF Stat Magnesium Stat Partial Thromboplastin Time Stat Prothrombin Time INR Stat Thyroid Stimulating Hormone Stat Troponin & CK Cardiac Panel Stat Vital Signs - 8 hr 01/17/19 14:30 Pulse Rate 62 Respiratory Rate 14 Blood Pressure [Right Arm] 129/94 H Pulse Oximetry 100 MDM - Arrhythmia/Palpitations <ANGELA Molina - Last Filed: 01/17/19 22:06> Lab Data Result diagrams: 01/17/19 12:20 01/17/19 12:20 Lab Results 01/17/19 01/17/19 01/17/19 Range/Units 12:20 12:20 12:20 WBC 5.8 (4.5-11.0) X10^3/uL RBC 4.93 (4.5-5.9) X10^6/uL Hgb 14.8 (13.5-17.5) g/dL Hct 43.0 (41-53) % MCV 87.1 (80-100) fL MCH 29.9 (26-34) PG MCHC 34.4 (30-36) % RDW 13.6 (11.6-14.8) % Plt Count 260 (150-400) X10^3/uL Neut % (Auto) 65.5 (50-75) % Lymph % (Auto) 25.8 (25-40) % [place] % (Auto) 7.0 (3-14) % Eos % (Auto) 0.8 L (2-4) % Baso % (Auto) 0.9 (0-2) % Neut # (Auto) 3800 (8769-0116) /uL Lymph # (Auto) 1500 (5893-3328) /uL [place] # (Auto) 400 (0-900) /uL Eos # (Auto) 0 (0-450) /uL Baso # (Auto) 100 (0-100) /uL PT 13.8 H (10.1-12.7) SECONDS INR 1.2 (0.9-1.3) APTT 30 (26.4-36.2) SECONDS Sodium 137 (137-145) mmol/L Potassium 4.1 (3.4-5.1) mmol/L Chloride 99 (98-107) mmol/L Carbon Dioxide 28 (22-32) mmol/L BUN 22 H (9-20) mg/dL Creatinine 1.20 (0.66-1.25) mg/dL Estimated GFR > 60.0 (>60) mL/min BUN/Creatinine Ratio 18.3 (6-22) Glucose 93 (70-100) mg/dL Calcium 9.6 (8.4-10.2) mg/dL Magnesium 2.1 (1.6-2.3) mg/dL Total Creatine Kinase 718 H (55-170) U/L CK-MB (CK-2) 5.25 H (<2.37) ng/mL CK-MB (CK-2) Rel Index 0.7 L (1.5-5.0) % Troponin I < 0.012 (0.01-0.034) ng/mL TSH (0.47-4.68) uIU/mL 01/17/19 Range/Units 12:20 WBC (4.5-11.0) X10^3/uL RBC (4.5-5.9) X10^6/uL Hgb (13.5-17.5) g/dL Hct (41-53) % MCV (80-100) fL MCH (26-34) PG MCHC (30-36) % RDW (11.6-14.8) % Plt Count (150-400) X10^3/uL Neut % (Auto) (50-75) % Lymph % (Auto) (25-40) % [place] % (Auto) (3-14) % Eos % (Auto) (2-4) % Baso % (Auto) (0-2) % Neut # (Auto) (8436-0597) /uL Lymph # (Auto) (2849-9986) /uL [place] # (Auto) (0-900) /uL Eos # (Auto) (0-450) /uL Baso # (Auto) (0-100) /uL PT (10.1-12.7) SECONDS INR (0.9-1.3) APTT (26.4-36.2) SECONDS Sodium (137-145) mmol/L Potassium (3.4-5.1) mmol/L Chloride (98-107) mmol/L Carbon Dioxide (22-32) mmol/L BUN (9-20) mg/dL Creatinine (0.66-1.25) mg/dL Estimated GFR (>60) mL/min BUN/Creatinine Ratio (6-22) Glucose (70-100) mg/dL Calcium (8.4-10.2) mg/dL Magnesium (1.6-2.3) mg/dL Total Creatine Kinase (55-170) U/L CK-MB (CK-2) (<2.37) ng/mL CK-MB (CK-2) Rel Index (1.5-5.0) % Troponin I (0.01-0.034) ng/mL TSH 2.72 (0.47-4.68) uIU/mL Imaging Data Chest x-ray: Radiologist's impression: [address] [address] XRay Report Signed Patient: IsabelMike [facility]#: [id number] : 1980Acct:[id number] Age/Sex: 38 / MDate of Service: 01/17/19 Loc: ED Accession Number: [id number] Procedure: XR chest 1V Ordering Provider: Neo Quintana D.O. PROCEDURE: XR CHEST 1V INDICATIONS: cp TECHNIQUE: One view of the chest was acquired. COMPARISON: [facility], , XR CHEST 1V, 06/27/2018, 8:41. FINDINGS: Surgical changes and devices: None. Lungs and pleura: Lungs are clear. No pleural effusions or pneumothorax. Mediastinum: Mediastinal contours appear normal. Heart size is normal. Bones and chest wall: No suspicious bony lesions. Overlying soft tissues appear unremarkable. IMPRESSION: Negative chest. No acute cardiopulmonary process is evident. Dictated by: Manuel Daniel M.D. on 01/17/2019 at 11:26 Approved by: Manuel Daniel M.D. on 01/17/2019 at 11:27 ECG Data Interpretation: EKG shows normal sinus rhythm with no ST elevation or depression. No ectopy. Ventricular rate is 70. Pr interval of 172. QRS duration of 100. QTC of 444. MDM Narrative Medical decision making narrative: EKG shows sinus rhythm no ST elevation or depression. No ectopy. Chest x-ray was obtained was negative. Cbc Was unremarkable. CMP was obtained was also unremarkable. CK was elevated at 718 CK-MB was also elevated at 5.25 however CK-MB relative index was low at 0.7. Troponin was negative. Believe that his chest tense feeling may be related to anxiety. Discussed case with Dr. Cantrell cardiology at who states that she knows patient it as being an anxious individual. She has no contraindications for him to going normal anti anxiety medications. She will follow up with him in her office next week as scheduled. She states that no further actions are needed at this time. He is encouraged to follow up with his primary care provider for discussion of antianxiety medications. For now he is encouraged to use relaxation techniques such as deep breathing exercises to help with any symptoms. For any worsening symptoms return to the emergency room. <Neo Quintana DO - Last Filed: 01/18/19 07:14> Lab Data Lab Results 03/05/19 03/05/19 03/05/19 Range/Units 12:20 12:20 12:20 WBC 5.8 (4.5-11.0) X10^3/uL RBC 4.93 (4.5-5.9) X10^6/uL Hgb 14.8 (13.5-17.5) g/dL Hct 43.0 (41-53) % MCV 87.1 (80-100) fL MCH 29.9 (26-34) PG MCHC 34.4 (30-36) % RDW 13.6 (11.6-14.8) % Plt Count 260 (150-400) X10^3/uL Neut % (Auto) 65.5 (50-75) % Lymph % (Auto) 25.8 (25-40) % [place] % (Auto) 7.0 (3-14) % Eos % (Auto) 0.8 L (2-4) % Baso % (Auto) 0.9 (0-2) % Neut # (Auto) 3800 (4285-0523) /uL Lymph # (Auto) 1500 (8265-7322) /uL [place] # (Auto) 400 (0-900) /uL Eos # (Auto) 0 (0-450) /uL Baso # (Auto) 100 (0-100) /uL PT 13.8 H (10.1-12.7) SECONDS INR 1.2 (0.9-1.3) APTT 30 (26.4-36.2) SECONDS Sodium 137 (137-145) mmol/L Potassium 4.1 (3.4-5.1) mmol/L Chloride 99 (98-107) mmol/L Carbon Dioxide 28 (22-32) mmol/L BUN 22 H (9-20) mg/dL Creatinine 1.20 (0.66-1.25) mg/dL Estimated GFR > 60.0 (>60) mL/min BUN/Creatinine Ratio 18.3 (6-22) Glucose 93 (70-100) mg/dL Calcium 9.6 (8.4-10.2) mg/dL Magnesium 2.1 (1.6-2.3) mg/dL Total Creatine Kinase 718 H (55-170) U/L CK-MB (CK-2) 5.25 H (<2.37) ng/mL CK-MB (CK-2) Rel Index 0.7 L (1.5-5.0) % Troponin I < 0.012 (0.01-0.034) ng/mL TSH (0.47-4.68) uIU/mL 01/17/19 Range/Units 12:20 WBC (4.5-11.0) X10^3/uL RBC (4.5-5.9) X10^6/uL Hgb (13.5-17.5) g/dL Hct (41-53) % MCV (80-100) fL MCH (26-34) PG MCHC (30-36) % RDW (11.6-14.8) % Plt Count (150-400) X10^3/uL Neut % (Auto) (50-75) % Lymph % (Auto) (25-40) % [place] % (Auto) (3-14) % Eos % (Auto) (2-4) % Baso % (Auto) (0-2) % Neut # (Auto) (2659-3695) /uL Lymph # (Auto) (5372-0193) /uL [place] # (Auto) (0-900) /uL Eos # (Auto) (0-450) /uL Baso # (Auto) (0-100) /uL PT (10.1-12.7) SECONDS INR (0.9-1.3) APTT (26.4-36.2) SECONDS Sodium (137-145) mmol/L Potassium (3.4-5.1) mmol/L Chloride (98-107) mmol/L Carbon Dioxide (22-32) mmol/L BUN (9-20) mg/dL Creatinine (0.66-1.25) mg/dL Estimated GFR (>60) mL/min BUN/Creatinine Ratio (6-22) Glucose (70-100) mg/dL Calcium (8.4-10.2) mg/dL Magnesium (1.6-2.3) mg/dL Total Creatine Kinase (55-170) U/L CK-MB (CK-2) (<2.37) ng/mL CK-MB (CK-2) Rel Index (1.5-5.0) % Troponin I (0.01-0.034) ng/mL TSH 2.72 (0.47-4.68) uIU/mL Discharge Plan Departure Patient Disposition: Home Clinical Impression: Chest tightness Discharge Date/Time: 01/17/19 15:06 Interventions: ED Discharge Assessment Last Done: 01/17/19 15:06 Instructions: DI for Anxiety -- Adult Activity Restrictions/Additional Instructions: laboratory results and imaging along with EKG today were unremarkable. Follow up with Cardiology next week as scheduled. I suspect that her symptoms may have a anxiety component to it recommend following up with her primary care provider for discussion of anti anxiety medications. In the short term recommend relaxation techniques such as deep breathing exercises to help with any symptoms. Take medications as prescribed. For any worsening symptoms return to the emergency room. Prescriptions: No Action multivitamin Tablet 1 tab PO DAILY RF: 0 amiodarone 200 mg tablet 1 dose PO BID RF: 0 Nyquil 1 dose PO BEDTIME PRN (Reason: cough and cold symptoms) RF: 0 metoprolol tartrate 25 mg tablet 25 mg PO BID RF: 0 acetaminophen [Tylenol] 325 mg Capsule 325 mg PO Q6H PRN (Reason: Pain (Scale Score 4-6)) RF: 0 Eliquis 5 mg tablet 5 mg PO BID RF: 0 Referrals: [facility] [Provider Group] <Neo Quintana DO - Last Filed: 01/18/19 07:14> Coscharla ED Attending Elvis Attestation: I was available for consultation during this patient's emergency department encounter
== END 2019-01-17 15:06 | disposition home or self-care (01) ==
PROVIDERS: Emergency Medicine; Emergency Provider Nurse Practitioner Family
DX: R07.89 Other chest pain (principal)
CPT/HCPCS: 71045; 80048; 82550; 82553; 83735; 84443; 84484; 85025; 85610; 85730; 93005; 93041; 99283; 99285

== ENCOUNTER 2019-09-07 11:38 | Emergency (ER) | payer OTHER, SELFPAY ==
[2019-09-07] VITALS (7 sets, daily range): BP systolic 127–142; BP diastolic 88–102; PULSE 83–91; RESP 12–20; TEMP 37.5; O2SAT 92–100; BMI 29.2
--- NOTE | 2019-09-07 12:06 | DI.RAD.S_ITS ---
PROCEDURE: XR CHEST 1V INDICATIONS: chest pain TECHNIQUE: One view of the chest was acquired. COMPARISON: [facility], CR, XR CHEST 1V, 01/17/2019, 12:11. [facility], CR, XR CHEST 1V, 06/27/2018, 8:41. CT pulmonary angiogram 06/27/2018. FINDINGS: Surgical changes and devices: None. Lungs and pleura: Lungs are clear. No pleural effusions or pneumothorax. Mediastinum: Mediastinal contours appear normal. Heart size is normal. Bones and chest wall: No suspicious bony lesions. Overlying soft tissues appear unremarkable. IMPRESSION: No acute cardiopulmonary abnormality. Dictated by: Maicol Huynh M.D. on 09/07/2019 at 12:29 Approved by: Maicol Huynh M.D. on 09/07/2019 at 12:30
[2019-09-07 12:11] LABS: HEMOLYSIS < 15 (0-50)
[2019-09-07 12:12] LABS: INR 1.3 (0.9-1.3); Prothrombin Time 15.2 SECONDS (10.1-12.7)
[2019-09-07 12:15] LABS: PTT Partial Thromboplastin Tim 35 SECONDS (26.4-36.2)
[2019-09-07 12:18] LABS: Add Manual Diff / Slide Review NO; Basophils Absolute Auto 100 /uL (0-100); Basophils Percent Auto 0.7 % (0-2); Eosinophils Absolute Auto 0 /uL (0-450); Eosinophils Percent Auto 0.6 % (2-4); Hematocrit 38.7 % (41-53); Hemoglobin 13.3 g/dL (13.5-17.5); Lymphocytes Absolute Auto 1500 /uL (1100-4500); Lymphocytes Percent Auto 16.8 % (25-40); Mean Corpuscular HGB Conc 34.4 % (30-36); Mean Corpuscular Hemoglobin 29.4 PG (26-34); Mean Corpuscular Volume 85.6 fL (80-100); Monocytes Absolute Auto 700 /uL (0-900); Monocytes Percent Auto 8.4 % (3-14); Neutrophils Absolute Auto 6400 /uL (1500-7000); Neutrophils Percent Auto 73.5 % (50-75); Platelet Count 204 X10^3/uL (150-400); Red Blood Cell Count 4.52 X10^6/uL (4.5-5.9); Red Cell Distribution Width 13.9 % (11.6-14.8); White Blood Cell Count 8.8 X10^3/uL (4.5-11.0)
--- NOTE | 2019-09-07 12:22 | ED.SOB ---
HPI - SOB/Dyspnea <Fawn Robert PA-C - Last Filed: 09/07/19 20:30> General Chief Complaint: Shortness of Breath/Dyspnea Stated Complaint: cardiac ablasion,hard to breath this morning Time Seen by Provider: 09/07/19 12:13 Source: patient Mode of arrival: Ambulatory Limitations: no limitations History of Present Illness HPI Narrative: This 39-year-old male comes to ED secondary to feeling more short of breath and feverish today. He notes that he had his 3rd cardiac ablation on Wednesday, also received a flu shot at that time. He states he had some ongoing cold symptoms for the prior month, a little bit of runny nose along with ongoing productive cough, but no fever or dyspnea. Today he woke up feeling warm and cold (no temperature taken), and like it is more difficult to take a full breath. He still has productive cough. Has some headache and feels rather achy all over. He states he has a little nausea, no vomiting or diarrhea. No chest pain. No palpitations. He feels very fatigued. He denies sore throat. Denies any recent travel. He states he can feel tired after ablation, but does not usually feel air hunger or feverish. He denies any recent travel or specific exposures aside from being at the hospital 2 days ago. Related Data Home Medications Medication Instructions Recorded Confirmed acetaminophen [Tylenol] 325 mg PO Q6H PRN 06/27/18 01/17/19 apixaban [Eliquis] 5 mg PO BID 06/27/18 09/07/19 metoprolol tartrate 25 mg PO BID 06/27/18 01/17/19 Nyquil 1 dose PO BEDTIME PRN 01/17/19 01/17/19 multivitamin 1 tab PO DAILY 01/17/19 01/17/19 amiodarone 200 mg PO BID 09/07/19 09/07/19 metoprolol succinate PO 09/07/19 pantoprazole 40 mg PO DAILY 09/07/19 09/07/19 Previous Rx's Medication Instructions Recorded albuterol sulfate [ProAir HFA] 2 inhalation INHALATION Q4-6H PRN 09/07/19 #8.5 gram furosemide [Lasix] 20 mg PO DAILY #3 tab 09/07/19 potassium chloride 10 meq PO DAILY #3 cap 09/07/19 Allergies Allergy/AdvReac Type Severity Reaction Status Date / Time No Known Drug Allergies Allergy Verified 01/17/19 11:50 Review of Systems <Fawn Robert PA-C - Last Filed: 09/07/19 20:30> Review of Systems ROS Unobtainable: All systems reviewed & are unremarkable except as noted in HPI and below Patient History <Fawn Robert PA-C - Last Filed: 09/07/19 20:30> Medical History (Updated 09/07/19 @ 14:56 by Fawn Robert PA-C) Atrial fibrillation (Acute) Atrial flutter (Acute) Surgical History (Updated 09/07/19 @ 14:56 by Fawn Robert PA-C) History of cardiac radiofrequency ablation (Acute) Status post shoulder surgery (Resolved) Social History Smoking Status: Never smoker alcohol intake frequency: a few times a week Substance Use Type: does not use Exam <Fawn Robert PA-C - Last Filed: 09/07/19 20:30> Narrative Exam Narrative: GENERAL APPEARANCE: Patient sitting comfortably, in no distress. HEAD: Mild generalized sinus tenderness EYES: PERRL, EOMI. ORAL CAVITY: Normal oropharynx THROAT: No erythema or exudate, PND noted NECK/THYROID: Neck supple, full range of motion, no cervical lymphadenopathy. LUNGS: Clear to auscultation bilaterally, clear to percussion, no cough on exam. HEART: RRR without murmur, nl S1, S2, no S3 or S4. ABDOMEN: Soft, nontender, nondistended, +bowel sounds x4 quadrants EXTREMITIES: No cyanosis or edema, no calf tenderness Initial Vital Signs Initial Vital Signs: Vital Signs Temperature 99.5 F 09/07/19 11:56 Pulse Rate 89 09/07/19 11:56 Respiratory Rate 16 09/07/19 11:56 Blood Pressure 139/94 H 09/07/19 11:56 Pulse Oximetry 94 09/07/19 11:56 <Neo Quintana DO - Last Filed: 09/08/19 07:08> Initial Vital Signs Initial Vital Signs: Vital Signs Temperature 99.5 F 09/07/19 11:56 Pulse Rate 89 09/07/19 11:56 Respiratory Rate 16 09/07/19 11:56 Blood Pressure 139/94 H 09/07/19 11:56 Pulse Oximetry 94 09/07/19 11:56 Course <Fawn Robert PA-C - Last Filed: 09/07/19 20:30> Course Additional Information: Patient appears stable while in the department. He has not had new palpitations. He has occasional single premature beat on monitoring, otherwise no ectopy, in sinus rhythm on EKG. No significant findings on workup. He has had bronchitis and felt some improvement following nebulizer treatment so likely has a component of reactive airways. In addition, I was able to speak with his drum operator from , Dr. Yani Cantrell, who advised typical to see elevated CK/troponin following ablation, and also due to release of BNP, could have some mild fluid overload. After discussion, decided to give low-dose Lasix for a few days as well, and they will check in with him on Wednesday. He also agrees to follow up with his PCP. He agreed to return if any acutely worsening symptoms or changes in the interim. Orders Ordered: Discontinued Medications Albuterol (Ventolin) 2.5 mg INH NOW ONE Stop: 09/07/19 12:59 Last Admin: 09/07/19 13:10 Dose: 2.5 mg Documented by: WILFRED Vital Signs Vital signs: Vital Signs - 8 hr 09/07/19 13:05 09/07/19 13:12 09/07/19 13:30 Pulse Rate 89 83 89 Respiratory Rate 12 16 16 Blood Pressure [Left Arm] 133/88 142/91 H Pulse Oximetry 100 96 94 09/07/19 14:00 09/07/19 14:55 Pulse Rate 87 91 H Respiratory Rate 18 20 Blood Pressure [Left Arm] 127/98 H 142/102 H Pulse Oximetry 93 94 <Neo Quintana DO - Last Filed: 09/08/19 07:08> Orders Ordered: Discontinued Medications Albuterol (Ventolin) 2.5 mg INH NOW ONE Stop: 09/07/19 12:59 Last Admin: 09/07/19 13:10 Dose: 2.5 mg Documented by: WILFRED Vital Signs Vital signs: Vital Signs - 8 hr 09/07/19 13:05 09/07/19 13:12 09/07/19 13:30 Pulse Rate 89 83 89 Respiratory Rate 12 16 16 Blood Pressure [Left Arm] 133/88 142/91 H Pulse Oximetry 100 96 94 09/07/19 14:00 09/07/19 14:55 Pulse Rate 87 91 H Respiratory Rate 18 20 Blood Pressure [Left Arm] 127/98 H 142/102 H Pulse Oximetry 93 94 MDM - SOB/Dyspnea <Fawn Robert PA-C - Last Filed: 09/07/19 20:30> Lab Data Attestation: I reviewed the patient's lab results. Result diagrams: 09/07/19 11:50 09/07/19 11:50 Labs: Lab Results 09/07/19 09/07/19 09/07/19 Range/Units 11:48 11:50 11:50 WBC 8.8 (4.5-11.0) X10^3/uL RBC 4.52 (4.5-5.9) X10^6/uL Hgb 13.3 L (13.5-17.5) g/dL Hct 38.7 L (41-53) % MCV 85.6 (80-100) fL MCH 29.4 (26-34) PG MCHC 34.4 (30-36) % RDW 13.9 (11.6-14.8) % Plt Count 204 (150-400) X10^3/uL Neut % (Auto) 73.5 (50-75) % Lymph % (Auto) 16.8 L (25-40) % [place] % (Auto) 8.4 (3-14) % Eos % (Auto) 0.6 L (2-4) % Baso % (Auto) 0.7 (0-2) % Neut # (Auto) 6400 (3971-3742) /uL Lymph # (Auto) 1500 (6162-8556) /uL [place] # (Auto) 700 (0-900) /uL Eos # (Auto) 0 (0-450) /uL Baso # (Auto) 100 (0-100) /uL PT 15.2 H (10.1-12.7) SECONDS INR 1.3 (0.9-1.3) APTT 35 D (26.4-36.2) SECONDS Sodium (137-145) mmol/L Potassium (3.4-5.1) mmol/L Chloride (98-107) mmol/L Carbon Dioxide (22-32) mmol/L BUN (9-20) mg/dL Creatinine (0.66-1.25) mg/dL Estimated GFR (>60) mL/min BUN/Creatinine Ratio (6-22) Glucose (70-100) mg/dL Calcium (8.4-10.2) mg/dL Magnesium 1.9 (1.6-2.3) mg/dL Total Bilirubin (0.2-1.3) mg/dL AST (17-59) IU/L ALT (21-72) IU/L Alkaline Phosphatase (38-126) U/L Total Creatine Kinase (55-170) U/L CK-MB (CK-2) (<2.37) ng/mL CK-MB (CK-2) Rel Index (1.5-5.0) % Troponin I (0.01-0.034) ng/mL Total Protein (6.3-8.2) g/dL Albumin (3.5-5.0) g/dL Globulin (1.7-4.1) g/dL Albumin/Globulin Ratio (1.0-2.8) Lipase (23-300) U/L Influenza A & B (PCR) (Negative) 09/07/19 09/07/19 Range/Units 11:50 12:33 WBC (4.5-11.0) X10^3/uL RBC (4.5-5.9) X10^6/uL Hgb (13.5-17.5) g/dL Hct (41-53) % MCV (80-100) fL MCH (26-34) PG MCHC (30-36) % RDW (11.6-14.8) % Plt Count (150-400) X10^3/uL Neut % (Auto) (50-75) % Lymph % (Auto) (25-40) % [place] % (Auto) (3-14) % Eos % (Auto) (2-4) % Baso % (Auto) (0-2) % Neut # (Auto) (6614-3608) /uL Lymph # (Auto) (8342-9882) /uL [place] # (Auto) (0-900) /uL Eos # (Auto) (0-450) /uL Baso # (Auto) (0-100) /uL PT (10.1-12.7) SECONDS INR (0.9-1.3) APTT (26.4-36.2) SECONDS Sodium 139 (137-145) mmol/L Potassium 3.7 (3.4-5.1) mmol/L Chloride 103 (98-107) mmol/L Carbon Dioxide 26 (22-32) mmol/L BUN 18 (9-20) mg/dL Creatinine 1.00 (0.66-1.25) mg/dL Estimated GFR > 60.0 (>60) mL/min BUN/Creatinine Ratio 18.0 (6-22) Glucose 96 (70-100) mg/dL Calcium 8.9 (8.4-10.2) mg/dL Magnesium (1.6-2.3) mg/dL Total Bilirubin 0.6 (0.2-1.3) mg/dL AST 62 H (17-59) IU/L ALT 91 H (21-72) IU/L Alkaline Phosphatase 59 (38-126) U/L Total Creatine Kinase 577 H (55-170) U/L CK-MB (CK-2) 1.81 (<2.37) ng/mL CK-MB (CK-2) Rel Index 0.3 L (1.5-5.0) % Troponin I 0.319 H* (0.01-0.034) ng/mL Total Protein 7.5 (6.3-8.2) g/dL Albumin 4.3 (3.5-5.0) g/dL Globulin 3.2 (1.7-4.1) g/dL Albumin/Globulin Ratio 1.3 (1.0-2.8) Lipase 28 (23-300) U/L Influenza A & B (PCR) Negative (Negative) Urine Dip Bedside Urine Glucose Negative Bedside Urine Bilirubin - Negative Bedside Urine Ketone - Negative Urine Specific [place] 1.010 Bedside Urine Occult Blood - Negative Bedside Urine pH 6.0 Bedside Urine Protein - Negative Bedside Urine Urobilinogen - Negative Bedside Urine Nitrite - Negative Bedside Urine Leukocytes - Negative Esterase Imaging Data Chest x-ray: Radiologist's impression: [address] [address] XRay Report Signed Patient: Mike Hall [facility]#: [id number] : 1980Acct:[id number] Age/Sex: 39 / MDate of Service: 09/07/19 Loc: ED Accession Number: [id number] Procedure: XR chest 1V Ordering Provider: Fawn Robert P.A-C PROCEDURE: XR CHEST 1V INDICATIONS: chest pain TECHNIQUE: One view of the chest was acquired. COMPARISON: [facility], CR, XR CHEST 1V, 01/17/2019, 12:11. [facility], CR, XR CHEST 1V, 06/27/2018, 8:41. CT pulmonary angiogram 06/27/2018. FINDINGS: Surgical changes and devices: None. Lungs and pleura: Lungs are clear. No pleural effusions or pneumothorax. Mediastinum: Mediastinal contours appear normal. Heart size is normal. Bones and chest wall: No suspicious bony lesions. Overlying soft tissues appear unremarkable. IMPRESSION: No acute cardiopulmonary abnormality. Dictated by: Maicol Hyunh M.D. on 09/07/2019 at 12:29 Approved by: Maicol Huynh M.D. on 09/07/2019 at 12:30 ECG Data Attestation: I personally reviewed and interpreted this ECG as follows: (Normal sinus rhythm, rate 91, no acute ST changes, normal axis.) Prior ECG tracings: available for review <Neo Quintana DO - Last Filed: 09/08/19 07:08> Lab Data Labs: Lab Results 09/07/19 09/07/19 09/07/19 Range/Units 11:48 11:50 11:50 WBC 8.8 (4.5-11.0) X10^3/uL RBC 4.52 (4.5-5.9) X10^6/uL Hgb 13.3 L (13.5-17.5) g/dL Hct 38.7 L (41-53) % MCV 85.6 (80-100) fL MCH 29.4 (26-34) PG MCHC 34.4 (30-36) % RDW 13.9 (11.6-14.8) % Plt Count 204 (150-400) X10^3/uL Neut % (Auto) 73.5 (50-75) % Lymph % (Auto) 16.8 L (25-40) % [place] % (Auto) 8.4 (3-14) % Eos % (Auto) 0.6 L (2-4) % Baso % (Auto) 0.7 (0-2) % Neut # (Auto) 6400 (1330-9778) /uL Lymph # (Auto) 1500 (5612-7442) /uL [place] # (Auto) 700 (0-900) /uL Eos # (Auto) 0 (0-450) /uL Baso # (Auto) 100 (0-100) /uL PT 15.2 H (10.1-12.7) SECONDS INR 1.3 (0.9-1.3) APTT 35 D (26.4-36.2) SECONDS Sodium (137-145) mmol/L Potassium (3.4-5.1) mmol/L Chloride (98-107) mmol/L Carbon Dioxide (22-32) mmol/L BUN (9-20) mg/dL Creatinine (0.66-1.25) mg/dL Estimated GFR (>60) mL/min BUN/Creatinine Ratio (6-22) Glucose (70-100) mg/dL Calcium (8.4-10.2) mg/dL Magnesium 1.9 (1.6-2.3) mg/dL Total Bilirubin (0.2-1.3) mg/dL AST (17-59) IU/L ALT (21-72) IU/L Alkaline Phosphatase (38-126) U/L Total Creatine Kinase (55-170) U/L CK-MB (CK-2) (<2.37) ng/mL CK-MB (CK-2) Rel Index (1.5-5.0) % Troponin I (0.01-0.034) ng/mL Total Protein (6.3-8.2) g/dL Albumin (3.5-5.0) g/dL Globulin (1.7-4.1) g/dL Albumin/Globulin Ratio (1.0-2.8) Lipase (23-300) U/L Influenza A & B (PCR) (Negative) 09/07/19 09/07/19 Range/Units 11:50 12:33 WBC (4.5-11.0) X10^3/uL RBC (4.5-5.9) X10^6/uL Hgb (13.5-17.5) g/dL Hct (41-53) % MCV (80-100) fL MCH (26-34) PG MCHC (30-36) % RDW (11.6-14.8) % Plt Count (150-400) X10^3/uL Neut % (Auto) (50-75) % Lymph % (Auto) (25-40) % [place] % (Auto) (3-14) % Eos % (Auto) (2-4) % Baso % (Auto) (0-2) % Neut # (Auto) (2452-3606) /uL Lymph # (Auto) (6477-9820) /uL [place] # (Auto) (0-900) /uL Eos # (Auto) (0-450) /uL Baso # (Auto) (0-100) /uL PT (10.1-12.7) SECONDS INR (0.9-1.3) APTT (26.4-36.2) SECONDS Sodium 139 (137-145) mmol/L Potassium 3.7 (3.4-5.1) mmol/L Chloride 103 (98-107) mmol/L Carbon Dioxide 26 (22-32) mmol/L BUN 18 (9-20) mg/dL Creatinine 1.00 (0.66-1.25) mg/dL Estimated GFR > 60.0 (>60) mL/min BUN/Creatinine Ratio 18.0 (6-22) Glucose 96 (70-100) mg/dL Calcium 8.9 (8.4-10.2) mg/dL Magnesium (1.6-2.3) mg/dL Total Bilirubin 0.6 (0.2-1.3) mg/dL AST 62 H (17-59) IU/L ALT 91 H (21-72) IU/L Alkaline Phosphatase 59 (38-126) U/L Total Creatine Kinase 577 H (55-170) U/L CK-MB (CK-2) 1.81 (<2.37) ng/mL CK-MB (CK-2) Rel Index 0.3 L (1.5-5.0) % Troponin I 0.319 H* (0.01-0.034) ng/mL Total Protein 7.5 (6.3-8.2) g/dL Albumin 4.3 (3.5-5.0) g/dL Globulin 3.2 (1.7-4.1) g/dL Albumin/Globulin Ratio 1.3 (1.0-2.8) Lipase 28 (23-300) U/L Influenza A & B (PCR) Negative (Negative) Urine Dip Bedside Urine Glucose Negative Bedside Urine Bilirubin - Negative Bedside Urine Ketone - Negative Urine Specific [place] 1.010 Bedside Urine Occult Blood - Negative Bedside Urine pH 6.0 Bedside Urine Protein - Negative Bedside Urine Urobilinogen - Negative Bedside Urine Nitrite - Negative Bedside Urine Leukocytes - Negative Esterase Discharge Plan Departure Patient Disposition: Home Clinical Impression: Shortness of Breath, Bronchitis, Status post radiofrequency ablation for arrhythmia Mild reactive airways disease Qualifiers: Asthma persistence: intermittent Asthma complication type: with acute exacerbation Qualified Code(s): J45.21 - Mild intermittent asthma with (acute) exacerbation Discharge Date/Time: 09/07/19 15:06 Instructions: DI for Acute Bronchitis, DI for Reactive Airway Disease-Adult Activity Restrictions/Additional Instructions: There was no unexpected finding on your lab work today, nor your EKG or chest x-ray. After speaking with Dr. Cantrell, I suspect that the bronchitis you have had recently maybe a little bit exacerbated due to a bit of fluid build up after your ablation, and also what we call reactive airways, meaning that inflammation in the airways can cause cough and shortness of breath even if you do not have asthma. Since the breathing treatment helped you, I have prescribed an inhaler for you to use for this as needed. I have also prescribed a few days of diuretic, called furosemide for you to take to help with any fluid buildup. Please call your primary care clinic when you leave here and arrange to follow up tomorrow or Wednesday for recheck. Dr. Cantrell also said they will check in with you on Wednesday. As we talked about, you should return to the ED if you have any acutely worsening symptoms in the interim. Prescriptions: New furosemide [Lasix] 20 mg tablet 20 mg PO DAILY Qty: 3 RF: 0 potassium chloride 10 mEq capsule, extended release 10 meq PO DAILY Qty: 3 RF: 0 albuterol sulfate [ProAir HFA] 90 mcg/actuation HFA aerosol inhaler 2 inhalation INHALATION Q4-6H PRN (Reason: shortness of breath) Qty: 8.5 RF: 0 No Action multivitamin Tablet 1 tab PO DAILY RF: 0 Nyquil 1 dose PO BEDTIME PRN (Reason: cough and cold symptoms) RF: 0 metoprolol tartrate 25 mg tablet 25 mg PO BID RF: 0 acetaminophen [Tylenol] 325 mg Capsule 325 mg PO Q6H PRN (Reason: Pain (Scale Score 4-6)) RF: 0 Eliquis 5 mg tablet 5 mg PO BID RF: 0 amiodarone 200 mg tablet 200 mg PO BID RF: 0 metoprolol succinate 50 mg tablet extended release 24 hr PO RF: 0 pantoprazole 40 mg tablet,delayed release (DR/EC) 40 mg PO DAILY RF: 0 Referrals: Yani Cantrell [Other] [facility] [Other] <Neo Quintana DO - Last Filed: 09/08/19 07:08> Sign Out Provider Sign Out Attestation: I was available for consultation during this patient's emergency department visit. This chart is signed by myself for administrative purposes only. I did not have direct contact with this patient during this visit. They were seen independently by the APC.
[2019-09-07 12:32] LABS: Magnesium 1.9 mg/dL (1.6-2.3)
[2019-09-07 12:33] LABS: Alanine Aminotransferase 91 IU/L (21-72); Albumin 4.3 g/dL (3.5-5.0); Albumin Globulin Ratio 1.3 (1.0-2.8); Alkaline Phosphatase 59 U/L (38-126); Aspartate Aminotransferase 62 IU/L (17-59); Bilirubin Total 0.6 mg/dL (0.2-1.3); Blood Urea Nitrogen 18 mg/dL (9-20); Calcium 8.9 mg/dL (8.4-10.2); Carbon Dioxide 26 mmol/L (22-32); Chloride 103 mmol/L (98-107); Creatine Kinase 577 U/L (55-170); Estimated Glomerular Filt Rate > 60.0 mL/min (>60); Globulin 3.2 g/dL (1.7-4.1); Glucose 96 mg/dL (70-100); Lipase 28 U/L (23-300); Potassium 3.7 mmol/L (3.4-5.1); Sodium 139 mmol/L (137-145); Total Protein 7.5 g/dL (6.3-8.2)
[2019-09-07 12:54] LABS: Influenza A and B by PCR Rapid Negative (Negative)
[2019-09-07] MEDS: ALBUTEROL 2.5 MG/3 ML NEB (ADULT) INH (13:10)
--- NOTE | 2019-09-07 13:20 | PC.NURSE ---
pt arrived POV, reports afib x 2 years and recent ablation this week. pt has had 2 additional ablations in the past. arrived with increased SOB since procedure. appears well. EKG obtained, IV placed and labs sent per order. reports feverish this morning. afebrile in ED. flu test negative. intermittent coughing. awaiting further orders.
[2019-09-07 13:24] LABS: Troponin I 0.319 ng/mL (0.01-0.034)
[2019-09-07 13:25] LABS: CKMB % Relative Index 0.3 % (1.5-5.0); Creatine Kinase MB 1.81 ng/mL (<2.37)
== END 2019-09-07 15:06 | disposition home or self-care (01) ==
PROVIDERS: Emergency Provider Internal Medicine
DX: R06.02 Shortness of breath (principal); J40 Bronchitis, not specified as acute or chronic; Z98.890 Other specified postprocedural states; J45.21 Mild intermittent asthma with (acute) exacerbation; R07.9 Chest pain, unspecified
CPT/HCPCS: 36415; 71045; 80053; 81003; 82550; 82553; 83690; 83735; 84484; 85025; 85610; 85730; 87502; 93005; 94640; 99283; 99284; 99285; J7613